=== PATIENT | female | born 1975 | race Caucasian/White ===

== ENCOUNTER 2016-09-19 13:50 | Emergency (ER) | payer OTHER ==
[~2016-09-19 13:50] MED LIST: BIAXIN500 MG PO; CLINDAMYCIN HC300 MG PO; EFFEXOR 37.537.5 MG PO; METOPROLOL TART25 MG PO; NORCO 7.5-3251 EACH PO; PRILOSEC OTC20 MG PO; SINGULAIR10 MG PO; ZYRTEC10 MG PO
== END 2016-09-19 14:25 | disposition home or self-care (01) ==
LOC: ER1 13:50
DX: H10.9 Unspecified conjunctivitis (principal); I10 Essential (primary) hypertension; Z88.0 Allergy status to penicillin; Z88.1 Allergy status to other antibiotic agents; Z88.2 Allergy status to sulfonamides; Z88.6 Allergy status to analgesic agent
CPT/HCPCS: 99283

== ENCOUNTER → 2020-05-02 | Outpatient (CLI) | payer OTHER ==
[~2020-05-02] MED LIST changes: +BENTYL 20MG TAB20 MG PO; +BUTALBIT-ACETA1 EACH PO; +CELEXA 20MG TAB20 MG PO; +FIBER500 MG PO; +HYDROXYZINE HCL25 MG PO; +MIRALAX17 GM PO; +NEURONTIN300 MG PO; +NORCO 5-325 TA1 EACH PO; +PREGABALIN200 MG PO; +ROBAXIN 750 MG750 MG PO; +VITAMIN D21250 MCG PO; +ZOFRAN 8 MG TAB8 MG PO
== END ==
LOC: CT 08:01
DX: R10.2 Pelvic and perineal pain (principal)
CPT/HCPCS: Q9967

== ENCOUNTER → 2020-06-06 | Outpatient (CLI) | payer OTHER | LOC: KOH-I 09:01 | DX: M79.672 Pain in left foot (principal); M25.572 Pain in left ankle and joints of left foot | CPT/HCPCS: 73610; 73630 ==

== ENCOUNTER → 2020-11-02 | Outpatient (CLI) | payer OTHER ==
[~2020-11-02] MED LIST changes: +HYDROCODON-ACE1 EAC2 PO; +IBUPROFEN600 MG PO; +POLYETHYLENE G500 GM MC
[2020-11-02 13:08] LABS: HEMOGLOBIN 14.8 gm/dl (12.3-15.3); RED BLOOD COUNT 4.8 M/UL (4.00-5.10); WHITE BLOOD COUNT 9.2 K/UL (4.5-11.0)
== END ==
LOC: OPSV2 12:17
PROVIDERS: Obstetrics & Gynecology
DX: Z01.812 Encounter for preprocedural laboratory examination (principal); N81.6 Rectocele
CPT/HCPCS: 81001; 85025

== ENCOUNTER 2020-11-15 08:35 | Day surgery (SDC) | payer OTHER ==
[~2020-11-15] VITALS: Ht 175.3 cm; Wt 88.5 kg
[~2020-11-15 08:35] MED LIST changes: -HYDROCODON-ACE1 EAC2 PO; -IBUPROFEN600 MG PO; -POLYETHYLENE G500 GM MC
[2020-11-15] MEDS ORDERED: IBUPROFEN600 MG PO (12:37)
[2020-11-15] MEDS ORDERED: POLYETHYLENE G500 GM MC (12:37)
[2020-11-15] MEDS ORDERED: HYDROCODON-ACE1 EAC2 PO (12:37)
--- NOTE | 2020-11-16 06:27 | NUR ---
AT 0530 CARBAJAL CATH REMOVED AND VAGINAL PACKING REMOVED. PT MESFIN WELL.
[2020-11-16 06:46] LABS: HEMOGLOBIN 12.5 gm/dl (12.3-15.3)
== END 2020-11-16 14:20 | disposition home or self-care (01) ==
LOC: OR 08:35 → OB 13:20 → OR 11-16 14:20
PROVIDERS: Obstetrics & Gynecology
DX: N81.6 Rectocele (principal); N81.5 Vaginal enterocele; N81.83 Incompetence or weakening of rectovaginal tissue; I10 Essential (primary) hypertension; E11.9 Type 2 diabetes mellitus without complications; K21.9 Gastro-esophageal reflux disease without esophagitis; I49.9 Cardiac arrhythmia, unspecified; F41.9 Anxiety disorder, unspecified; F32.9 Major depressive disorder, single episode, unspecified; F41.0 Panic disorder [episodic paroxysmal anxiety]; Z79.899 Other long term (current) drug therapy; Z88.0 Allergy status to penicillin; Z88.1 Allergy status to other antibiotic agents; Z20.822 Contact with and (suspected) exposure to COVID-19; Z90.710 Acquired absence of both cervix and uterus
CPT/HCPCS: 81001; 85014; 85018; 87086; 93005; C1769; J1170; J1580; J1885; J2001; J2250; J2270; J2405; J2704; J2795; J3010; J7120

== ENCOUNTER → 2021-06-08 | Outpatient (CLI) | payer OTHER ==
[~2021-06-08] MED LIST changes: +HYDROCODON-ACE1 EAC2 PO; +IBUPROFEN600 MG PO; +POLYETHYLENE G500 GM MC
== END ==
LOC: KOH-I 13:55
DX: Z01.810 Encounter for preprocedural cardiovascular examination (principal)
CPT/HCPCS: 93926

== ENCOUNTER → 2021-06-13 | Outpatient (CLI) | payer OTHER ==
[~2021-06-13] MED LIST changes: +CLARITIN10 MG PO; +MELATONIN10 M2 PO
[2021-06-13 11:00] LABS: HEMOGLOBIN 14.7 gm/dl (12.3-15.3); RED BLOOD COUNT 5.03 M/UL (4.00-5.10); WHITE BLOOD COUNT 9.1 K/UL (4.5-11.0)
[2021-06-13 11:14] LABS: BUN/CREATININE RATIO 14 (0-10)
== END ==
LOC: OPSV2 10:00
PROVIDERS: Podiatrist Foot & Ankle Surgery
DX: Z01.812 Encounter for preprocedural laboratory examination (principal); D36.10 Benign neoplasm of peripheral nerves and autonomic nervous system, unspecified; Z88.0 Allergy status to penicillin; Z88.5 Allergy status to narcotic agent
CPT/HCPCS: 80048; 85027

== ENCOUNTER → 2021-06-22 | Day surgery (SDC) | payer OTHER | END | disposition home or self-care (01) | LOC: OR 06:23 | DX: G57.82 Other specified mononeuropathies of left lower limb (principal); G43.909 Migraine, unspecified, not intractable, without status migrainosus; E11.40 Type 2 diabetes mellitus with diabetic neuropathy, unspecified; E07.9 Disorder of thyroid, unspecified; M81.0 Age-related osteoporosis without current pathological fracture; Z88.0 Allergy status to penicillin; Z79.82 Long term (current) use of aspirin; Z88.2 Allergy status to sulfonamides; Z20.822 Contact with and (suspected) exposure to COVID-19; Z88.6 Allergy status to analgesic agent; Z91.018 Allergy to other foods; Z90.49 Acquired absence of other specified parts of digestive tract; Z56.0 Unemployment, unspecified | CPT/HCPCS: J0690; J2001; J2250; J2405; J2704; J2765; J2795; J3010; J3370; J7120; Q4133 ==

== ENCOUNTER 2021-07-09 15:39 | Emergency (ER) | payer OTHER ==
[2021-07-09] MEDS ORDERED: BACTROBAN OINT22 GM EXT (16:54)
[2021-07-09] MEDS ORDERED: IBUPROFEN600 MG PO (16:54)
== END 2021-07-09 18:05 | disposition home or self-care (01) ==
LOC: ER1 15:39
DX: S80.02XA Contusion of left knee, initial encounter (principal); S80.212A Abrasion, left knee, initial encounter; K21.9 Gastro-esophageal reflux disease without esophagitis; F17.200 Nicotine dependence, unspecified, uncomplicated; V00.141A Fall from scooter (nonmotorized), initial encounter; Y92.410 Unspecified street and highway as the place of occurrence of the external cause
CPT/HCPCS: 73564; 90471; 90715; 99283